=== PATIENT | male | born 2000 | race Two or more races ===

== ENCOUNTER 2025-01-31 20:33 | Emergency (ER) | payer BC, SELFPAY ==
[2025-01-31 20:33] VITALS: BMI 32.3
[2025-01-31 20:49] VITALS: BP 208/136; BP 213/149; PULSE 84; RESP 18; TEMP 36.7; O2SAT 97
--- NOTE | 2025-01-31 21:01 | XR_ITS ---
Examination: CT brain head without contrast. 2-D sagittal coronal reconstructions Date and time of exam: January 31, 2025, 1030 hours INDICATIONS: High blood pressure and headache today CTDI: vol (mGy): 51.4 DLP: (mGycm): 1031 Technique: Multiple CT axial sections of the brain have been obtained, 5 mm slice thickness. Contrast has not been administered. 2-D sagittal, coronal reconstructions have been obtained Low dose protocols were performed. One or more of the following dose reduction techniques were used; automated exposure control, adjustment of the mA and/or KV according to patient size, use of iterative reconstruction technique. Findings: No significant ventricular enlargement. Intra-axial or extra-axial hemorrhage density is not seen. No mass effect or midline shift Basal cisterns are not remarkable. Fourth ventricle is midline. Cranial vault intact. Acute sphenoid sinusitis with Impression: Negative for acute hemorrhage, mass effect or midline shift
--- NOTE | 2025-01-31 21:01 | XR_ITS ---
EXAMINATION: AP chest single view TECHNIQUE: AP portable upright chest single view Date and time: January 31, 2025, 2137 hours INDICATIONS: Chest pain nausea shortness of breath today FINDINGS: Normal heart size The lungs are clear. Osseous structures are intact IMPRESSION: No active disease
--- NOTE | 2025-01-31 21:01 | EKG_ITS ---
[facility] Test Date: 2025-01-31 Pat Name: MELINDA ZHENG Department: Room: - Gender: Male Skilled Nursing Case Manager: : [id number] Requested By: Uriel Almeida Order Number: [id number] Reading MD: Uriel Almeida Measurements Intervals [place] Rate: 66 P: 64 [place]: 112 QRS: 71 QRSD: 91 T: 71 QT: 372 QTc: 392 Interpretive Statements SINUS RHYTHM WITH SHORT [place] INTERVAL No previous ECG available for comparison /store/S0/[id number]/ecg/[id number].pdf
--- NOTE | 2025-01-31 21:08 | PD.EDDIZZY ---
ED Dizzyness RME/HPI General Chief Complaint: General Adult/Misc Complain Stated Complaint: SENT BY CLINIC FOR SYMPTOMATIC HTN Time Seen by Provider: 01/31/25 20:59 Arrival date/time: 01/31/25 20:33 RME / HPI RME / HPI Narrative: See [facility] for Dr. Eden's HPI Documentation. Related Data Previous Rx's ?Medication ?Instructions ?Recorded clonidine HCl 0.1 mg tablet 0.1 mg PO BID #60 tabs 02/01/25 metoprolol succinate 50 mg 50 mg PO BID #60 tabs 02/01/25 tablet,extended release 24 hr Allergies Allergy/AdvReac Type Severity Reaction Status Date / Time No Known Allergies Allergy Verified 01/31/25 20:35 Review of Systems Review of Systems Systems Reviewed: All systems reviewed, normal except as documented Past Medical History Past Medical History CARDIAC: Positive Hypertension Social History SMOKING STATUS: Never smoker ED Exam Narrative Physical exam: See [facility] for Dr. Eden's Physical Exam Documentation. Course Quality Measures none Orders Category Date Time Status EKG (ED ONLY) *Do not use* NOW Care 01/31/25 21:01 Completed Saline [Insert IV] NOW Care 01/31/25 20:[address] chest abdomen pelvis wo Stat Exams 01/31/25 22:[address] head/brain wo con Stat Exams 01/31/25 21:01 Completed EKG (ED Only) Stat Exams 01/31/25 21:01 Draft XR chest 1V portable Stat Exams 01/31/25 21:01 Completed Alcohol, Blood Medical Stat Lab 01/31/25 21:00 Completed BNP [B-Type Natriuretic Peptide] Stat Lab 01/31/25 21:00 Completed Bilirubin,Direct Stat Lab 01/31/25 21:00 Completed CBC Stat Lab 01/31/25 21:00 Completed CMP [Comprehensive Metabolic Panel] Stat Lab 01/31/25 21:00 Completed Drug Screen,Urine Stat Lab 01/31/25 23:45 Completed Hemoglobin A1C [Glycohemoglobin w (eAG)] Stat Lab 01/31/25 21:00 Completed Magnesium Stat Lab 01/31/25 21:00 Completed TSH [Thyroid Stimulating Hormone] Stat Lab 01/31/25 21:00 Completed Troponin I Stat Lab 01/31/25 21:00 Completed UA, C/S IF [Urinalysis, C/S if Indicated] Stat Lab 01/31/25 23:45 Completed Metoprolol Tartrate Inj [Lopressor Inj] Med 01/31/25 22:13 Discontinued 2.5 mg IVP X1 ONE Metoprolol Tartrate [Lopressor] Med 01/31/25 21:00 Discontinued 25 mg PO X1 ONE Ondansetron Inj [Zofran Inj] Med 01/31/25 21:01 Discontinued 4 mg IVP X1 ONE Sodium Chloride 0.9% 1000 ml [Ns] 1,000 ml Med 01/31/25 21:01 Discontinued IV 999 mls/hr cloNIDine HCL [Catapres] Med 01/31/25 21:00 Discontinued 0.3 mg PO X1 ONE hydrALAZINE INJ [Apresoline Inj] Med 01/31/25 22:13 Discontinued 10 mg IVP X1 ONE Vital Signs Vital signs: Vital Signs Temperature 98.1 F 01/31/25 20:49 Pulse Rate 84 01/31/25 20:49 Respiratory Rate 18 01/31/25 20:49 Blood Pressure 213/149 H 01/31/25 20:49 Pulse Oximetry (%) 97 01/31/25 20:49 Oxygen Delivery Method Room Air 01/31/25 20:49 Dizziness MDM Narrative MDM Narrative:: This section includes all my notes and documentations, including HPI, PE, and ED course. Uriel Eden MD HPI: 24 y/o male with Hx of HTN (not compliant for over a year) presents with elevated blood pressure, headache, and dizziness. No other complaints. ROS: All negative except as documented in HPI. Physical Exam: General:? Alert and oriented.? No acute distress.??High BP noted. Eyes:? Conjunctivae and lids clear.? EOMI.? PERRL. ENT:? No nasal congestion.? Neck:? Supple.? No carotid bruit.? No JVD.?? Heart:? RRR.? Lungs:? No respiratory distress.? Good air movement.? No rhonchi, wheezing, rales.?? Abdomen:? Soft and nontender.? Normal bowel sounds.? No distension.? No rebound or guarding.?? Legs:? No clubbing, cyanosis, edema.? Skin:? Warm and dry.?? Neuro:? Alert and oriented X 3.? Cranial Nerves II-XII grossly intact.? No peripheral motor deficits. I reviewed all diagnostic test results: My interpretation of the EKG is: Sinus rhythm (66 bpm) with nonspecific ST-T changes. My interpretation of the chest x-ray is: NAD. My review of the Head/Brain CT report is: No acute findings. My review of the Chest/Abdomen/Pelvis CT report is NAD. Blood tests and urine tests remarkable for Cr 3.0 and hematuria. At this point, diagnoses include: Hypertension Kidney injury Hematuria Treatment here included: IVF Catapres 0.3 mg PO Lopressor 25 mg PO Lopressor 2.5 mg IV Zofran 4 mg IV Hydralazine 10 mg IV Significant improvement noted. Recommended more outpatient care. Based on my best medical judgment, made decision no further evaluation or treatment indicated at this time. Patient understands and agrees to the discharge instructions customized and printed, see below. Discharge Instructions from Dr. Eden printed for you: 1. You were treated for severely high BP today. Fortunately, there was no life-threatening condition. Such as stroke or heart attack. 2. But we need to lower your BP to prevent future heart attacks and strokes. And to prevent damage to your organs. 3. Take metoprolol every morning and every night. You will live longer with lower BP and slower heart rate. Check your BP 4 to 6 hours after each metoprolol dose. Take Clonidine 0.1 mg pill(s) every 12 hours (between metoprolol doses) as needed based on SBP (higher number of BP). SBP > 140, take one pill. SBP > 160, take two pills. SBP > 180, take three pills. SBP > 200, take four pills. 4. See a private doctor on 02/04/2025 for recheck and further care. Ask to review all test results and official radiology reports, to make sure you receive all necessary follow-ups and monitoring. Including rechecking your kidney function (blood tests today showed significant damage to your kidneys, probably from high BP). Ask for referral to see kidney specialist. Ask for referral to see urologist for your microscopic blood in your urine (blood in your urine is not normal). Ask for help to keep you healthy, with good management of your BP and helping you to prevent future heart attacks and strokes and with regular physical exam and health maintenance. 5. Seek immediate medical care with worsening or with any concerns. Uriel Eden MD Patient data External records reviewed:: [facility] previous records (No prior ED records available for review) Clinical information provided by:: patient Social determinants that could affect healthcare access:: none Patient has the following chronic illnesses:: None reported How is presenting disease/condition affected by chronic disease/condition?: no chronic disease Evaluation data The following diagnostics were reviewed and interpreted by me:: lab results, radiology exam(s) and EKG tracing(s) (My interpretation of the EKG is: Sinus rhythm (66 bpm) with nonspecific ST-T changes. Uriel Eden MD) Lab and/or radiology exams considered but not ordered:: None Interpretation Summary: I reviewed all diagnostic test results: My interpretation of the EKG is: Sinus rhythm (66 bpm) with nonspecific ST-T changes. My interpretation of the chest x-ray is: NAD. My review of the Head/Brain CT report is: No acute findings. My review of the Chest/Abdomen/Pelvis CT report is NAD. Blood tests and urine tests remarkable for Cr 3.0 and hematuria. Medications / Prescriptions Medications or Prescriptions considered but not ordered:: None Medication administrations:: Medication Administration History Discontinued Medications Clonidine (Clonidine Hcl 0.1 Mg Tablet) 0.3 mg PO X1 ONE Stop: 01/31/25 21:01 Last Admin: 01/31/25 21:16 Dose: 0.3 mg Documented By: Hydralazine HCl (Hydralazine Inj 20 Mg/Ml Vial) 10 mg IVP X1 ONE Stop: 01/31/25 22:14 Last Admin: 01/31/25 22:46 Dose: 10 mg Documented By: STEPHANIE Sodium Chloride (Ns) 1,000 mls @ 999 mls/hr IV .Q1H1M ONE Stop: 01/31/25 22:01 Last Infusion: 01/31/25 23:07 Dose: Infused Documented By: Admin: 01/31/25 21:53 Dose: 999 mls/hr Documented By: STEPHANIE Metoprolol Tartrate (Metoprolol Tartrate 25 Mg Tablet) 25 mg PO X1 ONE Stop: 01/31/25 21:01 Last Admin: 01/31/25 21:17 Dose: 25 mg Documented By: Metoprolol Tartrate (Metoprolol Tartrate Inj 1 Mg/Ml Amp 5 Ml) 2.5 mg IVP X1 ONE Stop: 01/31/25 22:14 Last Admin: 01/31/25 22:46 Dose: 2.5 mg Documented By: AC Ondansetron HCl (Ondansetron Inj 2 Mg/Ml Inj 2 Ml) 4 mg IVP X1 ONE; Protocol Stop: 01/31/25 21:02 Last Admin: 01/31/25 21:53 Dose: Not Given Documented By: STEPHANIE Non-Admin Reason: Patient Refused Treatment here included: IVF Catapres 0.3 mg PO Lopressor 25 mg PO Lopressor 2.5 mg IV Zofran 4 mg IV Hydralazine 10 mg IV Consultations Consultation(s) initiated? (list below): No Diagnosis Dizziness Differential Diagnosis: adverse reaction to drug, benign paroxysmal positional vertigo, orthostatic hypotension, vertebral basilar insufficiency, cerebrovascular accident, acute vestibular neuronitis and transient cerebral ischemia Most likely diagnosis given after review of the tests above:: Hypertension Kidney injury Hematuria Admission Indicated Admission indicated?: not indicated Explain why admission is indicated or not indicated:: With significant improvement and no condition needing emergent intervention, there was no indication for admission. Admission Request Was there a request for admission?: No Disposition Plan Disposition Plan: Discharge Discharge Attestation Discharge Attestation: The patient and all family members were given an opportunity to ask questions and understood the discharge instructions. Discharge instructions specifically effects, indications for sooner follow up or return to the emergency department, and the expected course of current diagnosis. Patient condition: Stable Discharge Plan Plan Patient Disposition: HOME (Self Care) Prescriptions/Referrals Prescriptions/Med Rec: New clonidine HCl 0.1 mg tablet 0.1 mg PO BID Qty: 60 0RF metoprolol succinate 50 mg tablet extended release 24 hr 50 mg PO BID Qty: 60 0RF Referrals: No Primary/Family,Physician [Primary Care Provider] - In 1 week Problem List Clinical Impression: Hypertension, Kidney injury, Hematuria Patient/Caregiver Discharge Instructions Discharge Activity: activity as tolerated Education Materials: ED Hematuria, ED Hypertension, Established, ED Renal Insufficiency Additional Instructions: Discharge Instructions from Dr. Eden printed for you: 1. You were treated for severely high BP today. Fortunately, there was no life-threatening condition. Such as stroke or heart attack. 2. But we need to lower your BP to prevent future heart attacks and strokes. And to prevent damage to your organs. 3. Take metoprolol every morning and every night. You will live longer with lower BP and slower heart rate. Check your BP 4 to 6 hours after each metoprolol dose. Take Clonidine 0.1 mg pill(s) every 12 hours (between metoprolol doses) as needed based on SBP (higher number of BP). SBP > 140, take one pill. SBP > 160, take two pills. SBP > 180, take three pills. SBP > 200, take four pills. 4. See a private doctor on 02/04/2025 for recheck and further care. Ask to review all test results and official radiology reports, to make sure you receive all necessary follow-ups and monitoring. Including rechecking your kidney function (blood tests today showed significant damage to your kidneys, probably from high BP). Ask for referral to see kidney specialist. Ask for referral to see urologist for your microscopic blood in your urine (blood in your urine is not normal). Ask for help to keep you healthy, with good management of your BP and helping you to prevent future heart attacks and strokes and with regular physical exam and health maintenance. 5. Seek immediate medical care with worsening or with any concerns. Print Language: Icelandic Stand Alone Forms: [employer]ge Award Info., Patient Portal Info Letter
[2025-01-31 21:16] VITALS: BP 213/149; PULSE 84
[2025-01-31 21:17] VITALS: BP 213/149; PULSE 84
[2025-01-31] MEDS: METOPROLOL TARTRATE 25 MG TABLET PO (21:17)
[2025-01-31 21:24] LABS: Basophils # (Auto) 0.1 Thou/mm3 (0.0-0.2); Basophils % (Auto) 1 % (0-2.5); Eosinophils # (Auto) 0.0 Thou/mm3 (0.0-0.5); Eosinophils % (Auto) 0 % (0-10); Hematocrit 40.6 % (41.0-53.0); Hemoglobin 14.5 g/dL (13.5-16.0); Immature Granulocytes Auto 0.04 Thou/mm3 (0.00-0.00); Lymphocytes # (Auto) 0.5 Thou/mm3 (1.0-4.8); Lymphocytes % (Auto) 5 % (10-50); Mean Corpuscular HGB Conc 35.7 g/dl (31.0-37.0); Mean Corpuscular Hemoglobin 29.2 pg (25.0-35.0); Mean Corpuscular Volume 82 fL (80-100); Monocytes # (Auto) 0.2 Thou/mm3 (0.0-0.8); Monocytes % (Auto) 2 % (0-12); Neutrophils # (Auto) 9.2 Thou/mm3 (1.8-7.7); Neutrophils % (Auto) 92 % (37-80); Nucleated Red Blood Cell # 0.00 Thou/mm3 (0.00-0.00); Nucleated Red Blood Cell % 0 /100 WBC (0); Platelet Count 291 Thou/mm3 (140-440); RDW Standard Deviation 36.3 fL (35.1-43.9); Red Blood Count 4.96 Miln/mm3 (4.50-5.90); White Blood Count 10.0 Thou/mm3 (3.8-10.6)
[2025-01-31 21:36] LABS: B-Type Natriuretic Peptide 144 pg/mL (0-100)
[2025-01-31 21:42] LABS: Alanine Aminotransferase 13 U/L (10-49); Albumin, Serum 4.0 gm/dL (3.5-5.0); Albumin/Globulin Ratio 1.6 (1.2-2.2); Alcohol, Blood Medical < 3.0 mg/dL (0-10.0); Alkaline Phosphatase 70 U/L (46-116); Anion Gap 11 (7-16); Aspartate Amino Transferase 12 U/L (0-34); BUN/Creatinine Ratio 10 Ratio (12-20); Bilirubin,Direct 0.1 mg/dL (0.0-0.3); Bilirubin,Total 0.5 mg/dL (0.3-1.2); Blood Urea Nitrogen 30 mg/dL (9-23); Calcium 9.6 mg/dL (8.3-10.6); Calcium (Corrected) 9.6 mg/dL (8.5-10.1); Carbon Dioxide 20.3 mMol/L (20.0-31.0); Chloride 113 mMol/L (98-107); Creatinine (Component) 3.0 mg/dL (0.6-1.3); Estimated Creatinine Clearance 40.0 mL/min (>60); Globulin 2.5 gm/dL (2.3-3.5); Glucose 105 mg/dL (74-106); Magnesium 2.0 mg/dL (1.6-2.6); Osmolality,Calculated 293 (275-295); Potassium 4.4 mMol/L (3.4-5.1); Sodium 144 mMol/L (136-145); Thyroid Stimulating Hormone 2.19 uIU/mL (0.55-4.78); Total Protein 6.5 gm/dL (5.7-8.2); Troponin I < 0.020 ng/mL (0.0-0.045); eGFR 29 See Note
[2025-01-31] MEDS: SODIUM CHLORIDE 0.9% 1000 ML 1,000 ML 999 ML IV (21:53)
[2025-01-31 21:54] VITALS: BP 195/126; PULSE 78; RESP 18; O2SAT 98
--- NOTE | 2025-01-31 22:05 | XR_ITS ---
Examination: CT chest, without intravenous contrast. CT abdomen, without intravenous contrast. CT pelvis, without intravenous contrast. 2-D sagittal and coronal reconstructions. 3-D reconstructions. Date and time of exam: January 31, 2025, 10:30 p.m. INDICATIONS: Chest pain abdominal pain acute renal insufficiency today CTDI vol (mgy) 10.8 DLP (MGycm) 868 Technique: Multiple CT images, 3.0 mm slice thickness, obtained chest, abdomen, pelvis, with the high-resolution 64 slice scanner.. Sagittal and coronal 2-D reconstructions are obtained. 3-D reconstructions Low dose protocols were performed. One or more of the following dose reduction techniques were used; automated exposure control, adjustment of the mA and/or KV according to patient size, use of iterative reconstruction technique. Findings: No thoracic aortic aneurysmal dilatation No mediastinal lymphadenopathy No pneumonia or pulmonary edema or pleural disease No liver or splenic lesion No renal or ureteral calculi No gallstones No pancreatic or adrenal mass Abdominal aorta normal size Small periaortic lymph nodes Normal appendix No bowel obstruction or diverticulitis No prostatomegaly Urinary bladder intact Osseous structures are intact IMPRESSION: No mediastinal lymphadenopathy No pneumonia or pulmonary edema or pleural disease Negative for gallstones Negative for pancreatitis No renal or ureteral calculi, no hydronephrosis Small periaortic lymph nodes, consider 6-month follow-up CT scan abdomen with intravenous contrast as clinically warranted Normal appendix No bowel obstruction diverticulitis or free air
[2025-01-31 22:18] LABS: Glucose Estimated Average 91 mg/dL (80-131); Hemoglobin A1C 4.8 % Hgb (4.8-6.0)
[2025-01-31 22:46] VITALS: BP 191/125; PULSE 84; PULSE 88
[2025-01-31] MEDS: hydrALAZINE INJ 20 MG/ML VIAL 10 MG IVP (22:46)
[2025-01-31] MEDS: METOPROLOL TARTRATE INJ 1 MG/ML AMP 5 ML 2.5 MG IVP (22:46)
[2025-01-31 23:07] VITALS: BP 176/108; PULSE 89; RESP 16; O2SAT 99
[2025-01-31 23:59] LABS: Collection Type, Urine Clean Catch
[2025-02-01 00:10] LABS: Bilirubin,Urine Negative (Negative); Blood,Urine 3+ (Negative); Clarity,Urine Turbid (Clear/Hazy); Color,Urine Lt-Yellow (Lt Yel-Yel); Culture Indicated,Urine Not Indicated; Glucose, Urine Negative (Negative); Ketones,Urine Negative (Negative); Leukocyte Esterase,Urine Negative (Negative); Nitrite,Urine Negative (Negative); PH,Urine 6.5 (5.0-7.0); Protein,Urine 3+ (Neg - Trace); RBC,Urine 81 /hpf (0-3); Specific Gravity,Urine 1.018 (1.001-1.035); Squamous Epithelial Cell,Urine 1 /hpf (0-5); Urobilinogen,Urine Negative mg/dL (0.0-1.0); WBC,Urine 5 /hpf (0-5)
[2025-02-01 00:12] LABS: Amphetamine/Methamp Scrn,U Negative (Negative); Barbiturate Screen,Urine Negative (Negative); Benzodiazepines Screen,Urine Negative (Negative); Benzoylecgonine Screen, Ur Negative (Negative); Fentanyl Screen,Urine Negative (Negative); Opiate Screen,Urine Negative (Negative); THC Screen,Urine Negative (Negative)
[2025-02-01 00:26] VITALS: BP 158/98; PULSE 85; RESP 18; TEMP 36.8; O2SAT 100
[2025-02-01 00:52] VITALS: BP 150/87; PULSE 83; RESP 18; O2SAT 100
== END 2025-02-01 01:02 | disposition home or self-care (01) ==
PROVIDERS: Emergency Provider Emergency Medicine
DX: I10 Essential (primary) hypertension (principal); N28.9 Disorder of kidney and ureter, unspecified; R31.9 Hematuria, unspecified; R07.9 Chest pain, unspecified; R11.0 Nausea; R06.02 Shortness of breath; R51.9 Headache, unspecified
CPT/HCPCS: 36415; 70450; 71045; 71250; 74176; 80053; 80307; 80320; 81001; 82248; 83036; 83735; 83880; 84443; 84484; 85025; 93005; 96361; 96374; 96375; 99284; J0360; J3490; J7030; A9270; G0480